=== PATIENT | female | born 1995 | race Caucasian/White ===

== ENCOUNTER 2018-10-31 14:03 | Inpatient (IN) | payer MEDICAID ==
[2018-10-31] MEDS ORDERED: Sodium Chloride 0.9% 10 ML Syringe FLUSH PRN ×2 (17:04→17:11)
[2018-10-31] MEDS ORDERED: Calcium Carbonate 500 MG Tab.Chew PO PRN (17:04)
[2018-10-31] MEDS ORDERED: Misoprostol 50 MCG (1/2 of 100 MCG) Tab VAG ONE (17:10)
[2018-10-31] MEDS ORDERED: Zolpidem 5 MG Tab PO ONE (17:10)
--- NOTE | 2018-10-31 17:34 | PCM.LDHP ---
L&D History of Present Illness - General Date of Service: 10/31/18 Admit Problem/Dx: Patient Status Order with Admit Dx/Problem 10/31/18 17:04 Patient Status [ADT] Routine Admission Diagnosis/Problem Admission Diagnosis/Problem - Related Data Home Medications: Home Meds Cephalexin [Keflex] 500 mg PO TID #14 capsule 06/10/18 [Rx] Past Medical History - Past Health History Medical/Surgical History: Denies Medical/Surgical History - Infectious Disease History Infectious Disease History: Reports: Chicken Pox Social & Family History - Caffeine Use Caffeine Use: Reports: Soda H&P Review of Systems - Review of Systems: Review Of Systems: See Below General: Reports: No Symptoms HEENT: Reports: No Symptoms Pulmonary: Reports: No Symptoms Cardiovascular: Reports: No Symptoms Gastrointestinal: Reports: No Symptoms Genitourinary: Reports: No Symptoms Musculoskeletal: Reports: No Symptoms Skin: Reports: No Symptoms Psychiatric: Reports: No Symptoms Neurological: Reports: No Symptoms Hematologic/Lymphatic: Reports: No Symptoms Immunologic: Reports: No Symptoms L&D Exam - Exam Exam: See Below - OB Specific Contraction Intensity: Mild Movement: Active Heart Tones: Present Heart Rate (FHR) Variability: Moderate (6-25 bmp) Presentation: Vertex - Kramer Score Kramer Score Cervix Position: Posterior Kramer Score Consistency: Firm Kramer Score Effacement: 0-30% Kramer Score Dilation: Closed Kramer Score 's Station: -3 Kramer Score Total: 0 - Exam General: Alert, Oriented HEENT: PERRLA, Conjunctiva Clear, EACs Clear, EOMI, Hearing Intact, Mucosa Moist & [place], Nares Patent, Normal Nasal Septum, Posterior Pharynx Clear, TMs Clear Neck: Supple, Trachea Midline Lungs: Clear to Auscultation, Normal Respiratory Effort Cardiovascular: Regular Rate, Regular Rhythm GI/Abdominal Exam: Normal Bowel Sounds, Soft, Non-Tender, No Organomegaly, No Distention, No Abnormal Bruit, No Mass, Pelvis Stable Rectal Exam: Normal Exam, Normal Rectal Tone Genitourinary: Normal external exam, Normal bimanual exam, Normal speculum exam Back Exam: Normal Inspection, Full Range of Motion Extremities: Normal Inspection, Normal Range of Motion, Non-Tender, Normal Capillary Refill, Pedal Edema (up to knee) Skin: Warm, Dry, Intact Neurological: Cranial Nerves Intact, Reflexes Equal Bilateral, Hyperreflexia DTR: 3+: Patella (L), Patella (R) Psychiatric: Alert, Normal Affect, Normal Mood - Patient Data Lab Results Last 24 hrs: Laboratory Results - last 24 hr 10/31/18 10/31/18 10/31/18 Range/Units 14:24 14:24 15:31 WBC (4.5-11.0) K/uL RBC (3.30-5.50) M/uL Hgb (12.0-15.0) g/dL Hct (36.0-48.0) % MCV (80-98) fL MCH (27-31) pg MCHC (32-36) % Plt Count (150-400) K/uL Neut % (Auto) (36-66) % Lymph % (Auto) (24-44) % [place] % (Auto) (2-6) % Eos % (Auto) (2-4) % Baso % (Auto) (0-1) % Sodium (140-148) mmol/L Potassium (3.6-5.2) mmol/L Chloride (100-108) mmol/L Carbon Dioxide (21-32) mmol/L Anion Gap (5.0-14.0) mmol/L BUN (7-18) mg/dL Creatinine (0.6-1.0) mg/dL Est Cr Clr Drug Dosing Estimated GFR (MDRD) (>60) Glucose (74-106) mg/dL Calcium (8.5-10.1) mg/dL Total Bilirubin (0.2-1.0) mg/dL AST (15-37) U/L ALT (12-78) U/L Alkaline Phosphatase (46-116) U/L Lactate Dehydrogenase (82-234) U/L Total Protein (6.4-8.2) g/dL Albumin (3.4-5.0) g/dL Globulin (2.3-3.5) g/dL Albumin/Globulin Ratio (1.2-2.2) Urine Color Yellow Urine Appearance Slightly cloudy Urine pH 8.0 (4.5-8.0) Ur Specific [place] 1.010 (1.008-1.030) Urine Protein Negative (NEGATIVE) mg/dL Urine Glucose (UA) Normal (NEGATIVE) mg/dL Urine Ketones Negative (NEGATIVE) mg/dL Urine Occult Blood Negative (NEGATIVE) Urine Nitrite Negative (NEGATIVE) Urine Bilirubin Negative (NEGATIVE) Urine Urobilinogen Normal (NORMAL) mg/dL Ur Leukocyte Esterase Small (NEGATIVE) Urine RBC 0-5 (0-5) Urine WBC 5-10 H (0-5) Ur Epithelial Cells Few Amorphous Sediment Not seen Urine Bacteria Many Urine Mucus Not seen Ur Random Creatinine 23.2 (20.0-370.0) mg/dL U Random Total Protein 8.0 (6.0-11.9) mg/dL Protein/Creatinin Ratio 344.8 H (21.0-161.0) mg/g Membrane Rupture Negative (NEGATIVE) 10/31/18 10/31/18 Range/Units 15:48 15:48 WBC 11.4 H (4.5-11.0) K/uL RBC 4.27 (3.30-5.50) M/uL Hgb 10.4 L (12.0-15.0) g/dL Hct 34.1 L (36.0-48.0) % MCV 80 (80-98) fL MCH 24 L (27-31) pg MCHC 31 L (32-36) % Plt Count 219 (150-400) K/uL Neut % (Auto) 73 H (36-66) % Lymph % (Auto) 18 L (24-44) % [place] % (Auto) 8 H (2-6) % Eos % (Auto) 1 L (2-4) % Baso % (Auto) 0 (0-1) % Sodium 140 (140-148) mmol/L Potassium 3.8 (3.6-5.2) mmol/L Chloride 105 (100-108) mmol/L Carbon Dioxide 25 (21-32) mmol/L Anion Gap 9.9 (5.0-14.0) mmol/L BUN 6 L (7-18) mg/dL Creatinine 0.7 (0.6-1.0) mg/dL Est Cr Clr Drug Dosing TNP Estimated GFR (MDRD) > 60 (>60) Glucose 79 (74-106) mg/dL Calcium 9.4 (8.5-10.1) mg/dL Total Bilirubin 0.3 (0.2-1.0) mg/dL AST 16 (15-37) U/L ALT 14 (12-78) U/L Alkaline Phosphatase 194 H (46-116) U/L Lactate Dehydrogenase 213 (82-234) U/L Total Protein 6.5 (6.4-8.2) g/dL Albumin 2.5 L (3.4-5.0) g/dL Globulin 4.0 H (2.3-3.5) g/dL Albumin/Globulin Ratio 0.6 L (1.2-2.2) Urine Color Urine Appearance Urine pH (4.5-8.0) Ur Specific [place] (1.008-1.030) Urine Protein (NEGATIVE) mg/dL Urine Glucose (UA) (NEGATIVE) mg/dL Urine Ketones (NEGATIVE) mg/dL Urine Occult Blood (NEGATIVE) Urine Nitrite (NEGATIVE) Urine Bilirubin (NEGATIVE) Urine Urobilinogen (NORMAL) mg/dL Ur Leukocyte Esterase (NEGATIVE) Urine RBC (0-5) Urine WBC (0-5) Ur Epithelial Cells Amorphous Sediment Urine Bacteria Urine Mucus Ur Random Creatinine (20.0-370.0) mg/dL U Random Total Protein (6.0-11.9) mg/dL Protein/Creatinin Ratio (21.0-161.0) mg/g Membrane Rupture (NEGATIVE) Result Diagrams: 10/31/18 15:48 10/31/18 15:48 - Problem List (1) Encounter for induction of labor SNOMED Code(s): 053296651 ICD Code: Z34.90 - ENCNTR FOR SUPRVSN OF NORMAL , UNSP, UNSP TRIMESTER Status: Acute Current Visit: Yes (2) Severely increased blood pressure and swelling during SNOMED Code(s): 39527233 ICD Code: O14.10 - SEVERE PRE-ECLAMPSIA, UNSPECIFIED TRIMESTER Status: Acute Current Visit: Yes Qualifiers: Trimester: third trimester Qualified Code(s): O14.13 - Severe pre-eclampsia , third trimester (3) Pre-eclampsia in third trimester SNOMED Code(s): 970336324, 142094573 ICD Code: O14.93 - UNSPECIFIED PRE-ECLAMPSIA, THIRD TRIMESTER Status: Acute Current Visit: Yes (4) SNOMED Code(s): 94212477 ICD Code: Z34.90 - ENCNTR FOR SUPRVSN OF NORMAL , UNSP, UNSP TRIMESTER Status: Acute Current Visit: Yes Qualifiers: Weeks of gestation: 39 weeks Qualified Code(s): Z3A.39 - 39 weeks gestation of Problem List Initiated/Reviewed/Updated: Yes Orders Last 24hrs: Active Orders 24 hr Category Date Time Status Patient Status [ADT] Routine ADT 10/31/18 17:04 Active Bedrest Bathroom Privileges [RC] ASDIRECTED Care 10/31/18 16:59 Active Communication Order [RC] ASDIRECTED Care 10/31/18 16:59 Active Communication Order [RC] ASDIRECTED Care 10/31/18 17:04 Active Equipment to Bedside [RC] PRN Care 10/31/18 16:59 Active Heart Tones [RC] PER UNIT ROUTINE Care 10/31/18 17:04 Active Non Stress Test [RC] Click to Edit Care 10/31/18 17:04 Active Intake and Output [RC] Q8H Care 10/31/18 17:02 Active May Shower [RC] ASDIRECTED Care 10/31/18 17:04 Active Notify Provider Vital Signs [RC] ASDIRECTED Care 10/31/18 16:59 Active Notify Provider [RC] PRN Care 10/31/18 17:04 Active OB Check [OM.PC] Click to Edit Care 10/31/18 14:24 Ordered Oxygen Therapy [RC] PRN Care 10/31/18 16:59 Active VTE/DVT Education [RC] Click to Edit Care 10/31/18 17:07 Active Vital Signs [RC] ASDIRECTED Care 10/31/18 16:59 Active Vital Signs [RC] PER UNIT ROUTINE Care 10/31/18 17:04 Active Weight Daily [Height and Weight] [RC] DAILY Care 10/31/18 17:23 Active Regular Diet [DIET] Diet 10/31/18 Dinner Active CBC WITH AUTO DIFF [HEME] Stat Lab 11/01/18 06:00 Ordered COMPREHENSIVE METABOLIC PN,CMP [CHEM] Stat Lab 11/01/18 06:00 Ordered LACTATE DEHYDROGENASE,LDH [CHEM] Stat Lab 11/01/18 06:00 Ordered MAGNESIUM [CHEM] Stat Lab 11/01/18 06:00 Ordered PROTEIN/CREATININE RATIO,URINE [URCHEM] Stat Lab 11/01/18 06:00 Ordered URIC ACID [CHEM] Stat Lab 11/01/18 06:00 Ordered Calcium Carbonate [Tums] Med 10/31/18 17:04 Ordered 1,000 mg PO Q2HR PRN Labetalol [Normodyne] Med 10/31/18 17:00 Pending 100 mg PO Q12H Ondansetron [Zofran] Med 10/31/18 17:04 Ordered 4 mg IV Q4H PRN Sodium Chloride 0.9% [Saline Flush] Med 10/31/18 17:04 Ordered 10 ml FLUSH ASDIRECTED PRN Sodium Chloride 0.9% [Saline Flush] Med 10/31/18 17:11 Ordered 10 ml FLUSH ASDIRECTED PRN Zolpidem [Ambien] Med 10/31/18 17:10 Once 10 mg PO ONETIME ONE miSOPROStol [Cytotec] Med 10/31/18 17:10 Once 50 mcg VAG ONETIME ONE Blood Pressure [OM.PC] Per Unit Routine Oth 10/31/18 16:59 Ordered DVT/VTE Prophylaxis Reflex [OM.PC] Routine Oth 10/31/18 17:04 Ordered Deep Tendon Reflexes [WOMSER] Per Unit Routine Oth 10/31/18 16:59 Ordered Saline Lock Insert [OM.PC] Routine Oth 10/31/18 17:04 Ordered Saline Lock Insert [OM.PC] Routine Ot 10/31/18 17:11 Ordered Seizure Precautions [OM.PC] Per Unit Routine Oth 10/31/18 17:02 Ordered Sequential Compression Device [OM.PC] Routine Oth 10/31/18 17:04 Ordered Resuscitation Status Routine Resus Stat 10/31/18 17:04 Ordered Medication Orders Calcium Carbonate/Glycine (Tums) 1,000 mg PO Q2HR PRN PRN Reason: Indigestion Labetalol HCl (Normodyne) 100 mg PO Q12H MARY Misoprostol (Cytotec) 50 mcg VAG ONETIME ONE Stop: 10/31/18 17:11 Ondansetron HCl (Zofran) 4 mg IV Q4H PRN PRN Reason: Nausea/Vomiting Sodium Chloride (Saline Flush) 10 ml FLUSH ASDIRECTED PRN PRN Reason: Keep Vein Open Sodium Chloride (Saline Flush) 10 ml FLUSH ASDIRECTED PRN PRN Reason: Keep Vein Open Zolpidem Tartrate (Ambien) 10 mg PO ONETIME ONE Stop: 10/31/18 17:11 Assessment/Plan Comment:: 10/31/2018 23 yo here at 39 3/7 weeks gestation, originally came because she thought she had ruptured membranes. She was found to have high BP first being 153/105 and 20 minutes later she had a 153/101, full preeclampsia work up was done on patient. Protein/Creatine ratio-344.8 LDH-213 Edema-+3 pitting edema and labia edema hyperreflexia No clonus noted FHTs-category one Irregular contractions SVE-closed/thick/ballotable and high Will need to medically induce patient due to preeclampsia, term , and unstable BPs with worsening symptoms Patient agrees with this plan Plan- Continue to monitor FHTS Continue to monitor for labor Will place Cytotec 50mcg vaginally Will start labetolol 100mg every 12hrs Insert saline lock Every time you check vital signs per cytotec policy, check FHTS, Contraction pattern, reflexes, Clonus, and lung sounds If patient starts to have other complaints such as headache, spots in vision, notify provider and assess more frequently Seizure precautions Limit visitors and activity Modified bedrest Patient can shower, light walks, sit on ball, and small activity Light dietary intake CBC, CMP, LDH, Magnesium level, and protein creatine ratio at 0600 in am Pain management per patient request Ambien at 2100 then no visitors but significant other throughout night Plan and anticipate vaginal delivery
[2018-10-31] MEDS: Labetalol 100 MG Tab PO SCH (18:33)
[2018-10-31] MEDS ORDERED: Zolpidem 5 MG Tab ONE (21:30)
[2018-11-01] MEDS: Labetalol 100 MG Tab PO SCH ×2 (06:00→17:39)
[2018-11-01] MEDS ORDERED: Misoprostol 50 MCG (1/2 of 100 MCG) Tab VAG ONE (06:30)
[2018-11-01] MEDS ORDERED: Misoprostol 50 MCG (1/2 of 100 MCG) Tab ONE (06:46)
[2018-11-01] MEDS ORDERED: Potassium Chloride 20 MEQ Tab.ER PO ONE (07:02)
--- NOTE | 2018-11-01 07:37 | PCM.PNLD ---
Labor Progress Note - VS & Meds Vital Signs: Last Vital Signs Temp 36.1 C 11/01/18 02:41 Pulse 105 H 11/01/18 06:00 Resp 16 11/01/18 02:41 BP 127/79 11/01/18 06:00 Pulse Ox 97 11/01/18 02:41 Active Medications: Current Medications Calcium Carbonate/Glycine (Tums) 1,000 mg PO Q2H PRN PRN Reason: Indigestion Labetalol HCl (Normodyne) 100 mg PO Q12H [facility] Last Admin: 11/01/18 06:00 Dose: 100 mg Ondansetron HCl (Zofran) 4 mg IV Q4H PRN PRN Reason: Nausea/Vomiting Sodium Chloride (Saline Flush) 10 ml FLUSH ASDIRECTED PRN PRN Reason: Keep Vein Open Sodium Chloride (Saline Flush) 10 ml FLUSH ASDIRECTED PRN PRN Reason: Keep Vein Open Discontinued Medications Misoprostol (Cytotec) 50 mcg VAG ONETIME ONE Stop: 10/31/18 17:11 Last Admin: 10/31/18 18:34 Dose: 50 mcg Misoprostol (Cytotec) 50 mcg VAG ONETIME ONE Stop: 11/01/18 06:31 Last Admin: 11/01/18 06:42 Dose: 50 mcg Misoprostol (Cytotec) Confirm Administered Dose 50 mcg .ROUTE .STK-MED ONE Stop: 11/01/18 06:47 Last Admin: 11/01/18 06:52 Dose: Not Given Potassium Chloride (Klor-Con M20) 20 meq PO ONETIME ONE Stop: 11/01/18 07:03 Zolpidem Tartrate (Ambien) 10 mg PO ONETIME ONE Stop: 10/31/18 17:11 Last Admin: 10/31/18 21:32 Dose: 10 mg Zolpidem Tartrate (Ambien) Confirm Administered Dose 10 mg .ROUTE .STK-MED ONE Stop: 10/31/18 21:31 Last Admin: 11/01/18 05:50 Dose: Not Given - Uterine Contractions Uterine Monitoring Mode: External [place] Contraction Frequency (min): 130 Contraction Duration (sec): 40-70 Contraction Intensity: Mild to Moderate Uterine Resting Tone: Soft - Monitoring Heart Rate (FHR) Variability: Moderate (6-25 bmp) Accelerations: Present, 15x15 Decelerations: None Strip Review: Category I - Vaginal Exam Dilation (cm): 0 Effacement (Percent): 0 Station: Ballotable Cervical Position: Posterior Sterile Vaginal Exam Performed By: Julissa Ambriz - Labor Progress (Free Text) Labor Progress: 11/01/2018 23 yo here at 39 4/7 for a medical induction due to preeclampsia, elevated BP, elevated proteinuria, pitting edema, and hyperreflexia Had cytotec last night-no cervical change Had labatolol and BP is more stable Labs this am-Hgb-9.8, K+3.5, LDH 215, Total urine protein up to 23, but ratio 233 Edema still 3+ and pitting, hyperreflexia noted No clonus Plan- Placed another cytotec vaginally Gave one dose oral K+ 20meq Will do a BPP this am on fetus, and a OB limited for position, BENEDICTO since baby is no where in pelvis and ballotable Continue to monitor for labor Continue to monitor FHTs Will reassess at lunchtime and possible start Pitocin Plan and anticipate a vaginal delivery
--- NOTE | 2018-11-01 08:40 | CRLUS ---
INDICATION: . Biophysical profile. position in amniotic fluid. FINDINGS: A limited OB ultrasound and biophysical profile was performed. There is a single living intrauterine gestation. Cardiac activity at a rate of 130 beats per minute. Anterior placenta. Presentation vertex. Amniotic fluid index 10.0 cm. measuring BPD 9.44 cm. 38 weeks 4 days Head circumference 33.76 cm. 38 weeks 6 days. Abdominal circumference 34.58 cm. 38 weeks 4 days. Femur length 7.53 cm. 38 weeks 4 days. The sonographic estimated station late age is 38 weeks 5 days. Estimated weight 3517 g which that the 73rd percentile. Biophysical profile. Breathin. Movement: 2 Tone: 2 Fluid volume: 2 Biophysical profile 12/17. IMPRESSION: Single living intrauterine gestation at a sonographic estimated gestational age of 38 weeks 5 days. Biophysical profile 12/17. Dictated by: León Coburn MD @ 11/01/2018 08:38:50 (Electronically Signed)
--- NOTE | 2018-11-01 08:40 | CRLUS ---
INDICATION: . Biophysical profile. position in amniotic fluid. FINDINGS: A limited OB ultrasound and biophysical profile was performed. There is a single living intrauterine gestation. Cardiac activity at a rate of 130 beats per minute. Anterior placenta. Presentation vertex. Amniotic fluid index 10.0 cm. measuring BPD 9.44 cm. 38 weeks 4 days Head circumference 33.76 cm. 38 weeks 6 days. Abdominal circumference 34.58 cm. 38 weeks 4 days. Femur length 7.53 cm. 38 weeks 4 days. The sonographic estimated station late age is 38 weeks 5 days. Estimated weight 3517 g which that the 73rd percentile. Biophysical profile. Breathin. Movement: 2 Tone: 2 Fluid volume: 2 Biophysical profile 12/17. IMPRESSION: Single living intrauterine gestation at a sonographic estimated gestational age of 38 weeks 5 days. Biophysical profile 12/17. Dictated by León Coburn MD @ Nov 01 2018 8:28AM Signed by Dr. León Coburn @ Nov 01 2018 8:38AM
[2018-11-01] MEDS ORDERED: Acetaminophen 325 MG Tab PO PRN (14:07)
[2018-11-01] MEDS ORDERED: Lactated Ringers 1,000 ML IV ONE (18:00)
--- NOTE | 2018-11-01 18:17 | PCM.PNLD ---
Labor Progress Note - VS & Meds Vital Signs: Last Vital Signs Temp 35.9 C 11/01/18 14:26 Pulse 96 11/01/18 17:39 Resp 16 11/01/18 14:35 BP 133/73 11/01/18 17:39 Pulse Ox 97 11/01/18 14:35 Active Medications: Current Medications Acetaminophen (Tylenol) 650 mg PO Q4H PRN PRN Reason: Headache/Pain Last Admin: 11/01/18 14:25 Dose: 650 mg Calcium Carbonate/Glycine (Tums) 1,000 mg PO Q2H PRN PRN Reason: Indigestion Oxytocin/Sodium Chloride (Pitocin In Ns 20 Units/1,000 Ml) 20 unit in 1,000 mls @ 6 mls/hr IV TITRATE MARY; Protocol Last Titration: 11/01/18 17:56 Dose: 0 munits/min, 0 mls/hr Lactated Ringer's (Ringers, Lactated) 1,000 mls @ 999 mls/hr IV BOLUS ONE Stop: 11/01/18 19:00 Last Admin: 11/01/18 17:50 Dose: 999 mls/hr Labetalol HCl (Normodyne) 100 mg PO Q12H MARY Last Admin: 11/01/18 17:39 Dose: 100 mg Ondansetron HCl (Zofran) 4 mg IV Q4H PRN PRN Reason: Nausea/Vomiting Sodium Chloride (Saline Flush) 10 ml FLUSH ASDIRECTED PRN PRN Reason: Keep Vein Open Sodium Chloride (Saline Flush) 10 ml FLUSH ASDIRECTED PRN PRN Reason: Keep Vein Open Discontinued Medications Misoprostol (Cytotec) 50 mcg VAG ONETIME ONE Stop: 10/31/18 17:11 Last Admin: 10/31/18 18:34 Dose: 50 mcg Misoprostol (Cytotec) 50 mcg VAG ONETIME ONE Stop: 11/01/18 06:31 Last Admin: 11/01/18 06:42 Dose: 50 mcg Misoprostol (Cytotec) Confirm Administered Dose 50 mcg .ROUTE .STK-MED ONE Stop: 11/01/18 06:47 Last Admin: 11/01/18 06:52 Dose: Not Given Potassium Chloride (Klor-Con M20) 20 meq PO ONETIME ONE Stop: 11/01/18 07:03 Last Admin: 11/01/18 08:27 Dose: 20 meq Zolpidem Tartrate (Ambien) 10 mg PO ONETIME ONE Stop: 10/31/18 17:11 Last Admin: 10/31/18 21:32 Dose: 10 mg Zolpidem Tartrate (Ambien) Confirm Administered Dose 10 mg .ROUTE .STK-MED ONE Stop: 10/31/18 21:31 Last Admin: 11/01/18 05:50 Dose: Not Given - Uterine Contractions Uterine Monitoring Mode: None in Use Contraction Frequency (min): 1.5-3 Contraction Duration (sec): 50-80 Contraction Intensity: Mild Uterine Resting Tone: Soft - Monitoring Heart Rate (FHR) Variability: Moderate (6-25 bmp) Accelerations: Present, 15x15 Decelerations: None Strip Review: Category I - Vaginal Exam Dilation (cm): 0 Effacement (Percent): 0 Station: Ballotable Cervical Position: Posterior Sterile Vaginal Exam Performed By: Julissa Ambriz - Labor Progress (Free Text) Labor Progress: 11/01/2018 Patient remains same SVE FHTs remain category one Contractions are more regular at 1.5-3.5 minutes Patient states she can feel them now BP currently more stable on labetalol Plan- Continue to monitor labor Continue to monitor FHTs Continue limited activity and modified bedrest Continue labetalol for BP Continue close I&O Continue seizure precautions Start Pitocin per protocol Plan and anticipate a vaginal delivery Will reassess later today
[2018-11-01] MEDS ORDERED: Oxytocin 10 Units/1 ML SDV ONE ×2 (18:24→18:25)
[2018-11-01] MEDS ORDERED: cefOXitin 1 GM Vial ONE (18:24)
[2018-11-01] MEDS ORDERED: cefOXitin 2 GM Vial ONE (18:25)
[2018-11-01] MEDS ORDERED: ePHEDrine 50 MG/ML SDV ONE (18:25)
--- NOTE | 2018-11-01 18:27 | PCM.PNLD ---
Labor Progress Note - VS & Meds Vital Signs: Last Vital Signs Temp 35.9 C 11/01/18 14:26 Pulse 96 11/01/18 17:39 Resp 16 11/01/18 14:35 BP 133/73 11/01/18 17:39 Pulse Ox 97 11/01/18 14:35 Active Medications: Current Medications Acetaminophen (Tylenol) 650 mg PO Q4H PRN PRN Reason: Headache/Pain Last Admin: 11/01/18 14:25 Dose: 650 mg Calcium Carbonate/Glycine (Tums) 1,000 mg PO Q2H PRN PRN Reason: Indigestion Oxytocin/Sodium Chloride (Pitocin In Ns 20 Units/1,000 Ml) 20 unit in 1,000 mls @ 6 mls/hr IV TITRATE MARY; Protocol Last Titration: 11/01/18 17:56 Dose: 0 munits/min, 0 mls/hr Lactated Ringer's (Ringers, Lactated) 1,000 mls @ 999 mls/hr IV BOLUS ONE Stop: 11/01/18 19:00 Last Admin: 11/01/18 17:50 Dose: 999 mls/hr Labetalol HCl (Normodyne) 100 mg PO Q12H MARY Last Admin: 11/01/18 17:39 Dose: 100 mg Ondansetron HCl (Zofran) 4 mg IV Q4H PRN PRN Reason: Nausea/Vomiting Sodium Chloride (Saline Flush) 10 ml FLUSH ASDIRECTED PRN PRN Reason: Keep Vein Open Sodium Chloride (Saline Flush) 10 ml FLUSH ASDIRECTED PRN PRN Reason: Keep Vein Open Discontinued Medications Misoprostol (Cytotec) 50 mcg VAG ONETIME ONE Stop: 10/31/18 17:11 Last Admin: 10/31/18 18:34 Dose: 50 mcg Misoprostol (Cytotec) 50 mcg VAG ONETIME ONE Stop: 11/01/18 06:31 Last Admin: 11/01/18 06:42 Dose: 50 mcg Misoprostol (Cytotec) Confirm Administered Dose 50 mcg .ROUTE .STK-MED ONE Stop: 11/01/18 06:47 Last Admin: 11/01/18 06:52 Dose: Not Given Potassium Chloride (Klor-Con M20) 20 meq PO ONETIME ONE Stop: 11/01/18 07:03 Last Admin: 11/01/18 08:27 Dose: 20 meq Zolpidem Tartrate (Ambien) 10 mg PO ONETIME ONE Stop: 10/31/18 17:11 Last Admin: 10/31/18 21:32 Dose: 10 mg Zolpidem Tartrate (Ambien) Confirm Administered Dose 10 mg .ROUTE .STK-MED ONE Stop: 10/31/18 21:31 Last Admin: 11/01/18 05:50 Dose: Not Given - Uterine Contractions Uterine Monitoring Mode: None in Use Contraction Frequency (min): 1.5-3 Contraction Duration (sec): 50-80 Contraction Intensity: Mild Uterine Resting Tone: Soft - Monitoring Heart Rate (FHR) Variability: Moderate (6-25 bmp) Accelerations: Present, 15x15 Decelerations: None Strip Review: Category I - Vaginal Exam Dilation (cm): FT Effacement (Percent): 25 Station: Ballotable Cervical Position: Posterior Sterile Vaginal Exam Performed By: Julissa Ambriz Vaginal Exam Comment: pitocin running currently - Labor Progress (Free Text) Labor Progress: 11/01/2018 Patient still not progressing Did have a few higher BPs during afternoon Still has 2+ edema Still has hyperreflexia FHTs category one Contractions regular 1.5-3minutes SVE-FT/25/ballotable Pitocin has been running for over five hours Patient is requesting a at this time Plan- Stop pitocin at this time OR crew notified of decision at this time LR bolus initiated
[2018-11-01] MEDS ORDERED: Dexamethasone 4 MG/ML SDV ONE (19:14)
[2018-11-01] MEDS ORDERED: Ondansetron 4 MG/2 ML SDV ONE (19:14)
[2018-11-01] MEDS ORDERED: Metoclopramide 10 MG/2 ML SDV IVPUSH PRN (20:44)
[2018-11-01] MEDS ORDERED: Naloxone 0.4 MG/ML SDV IVPUSH PRN ×2 (20:45→21:03)
[2018-11-01] MEDS ORDERED: Atropine 0.1 MG/ML 10 ML Syringe IVPUSH PRN (20:46)
[2018-11-01] MEDS ORDERED: Meperidine PF 25 MG/ML Syringe IVPUSH PRN (20:48)
[2018-11-01] MEDS ORDERED: Labetalol 20 MG/4 ML Syringe IVPUSH PRN (20:51)
[2018-11-01] MEDS ORDERED: hydrOXYzine HCl 100 MG/2 ML SDV IM PRN (21:02)
[2018-11-01] MEDS ORDERED: HYDROmorphone/Normal Saline 15 MG/30 ML PCA IV PRN (21:03)
[2018-11-01] MEDS: Ondansetron 4 MG/2 ML SDV IV PRN (21:45)
[2018-11-01] MEDS: cefOXitin 2 GM in Sodium Chloride 0.9% 50 ML IV SCH (22:28)
[2018-11-01] MEDS: Acetaminophen 1,000 MG in Premix Bag 1 BAG IV SCH (23:05)
[2018-11-02] MEDS ORDERED: Dextrose 5%-Lactated Ringers 1,000 ML IV SCH (02:00)
[2018-11-02] MEDS: Acetaminophen 1,000 MG in Premix Bag 1 BAG IV SCH (03:58)
[2018-11-02] MEDS: cefOXitin 2 GM in Sodium Chloride 0.9% 50 ML IV SCH ×3 (04:22→16:01)
[2018-11-02] MEDS ORDERED: Acetaminophen 325 MG Tab, 50 Tab Bulk Bottle PO PRN (07:20)
[2018-11-02] MEDS: Dextrose 5%-Lactated Ringers 1,000 ML IV SCH (08:01)
[2018-11-02] MEDS: Docusate Sodium 100 MG Cap PO SCH ×2 (09:15→21:41)
[2018-11-02] MEDS ORDERED: Acetaminophen 1,000 MG in Premix Bag 1 BAG IV SCH (10:00)
--- NOTE | 2018-11-02 10:08 | OR ---
DATE OF PROCEDURE: 11/01/2018 PREOPERATIVE DIAGNOSIS: Term with preeclampsia and failure to progress. POSTOPERATIVE DIAGNOSES: 1. Term with preeclampsia and failure to progress. 2. Peritoneal cystic lesion, left lateral uterine wall. OPERATIVE PROCEDURES: 1. section (88802). 2. Excision of cystic peritoneal lesion left lateral uterine wall (05335). ANESTHESIA: Spinal. MEDICAL OFFICE SPECIALIST: Julissa Ambriz CNM. INDICATION FOR PROCEDURE: This is a 23-year-old, presenting with term with preeclampsia. Induction was initiated earlier which has resulted in failure to progress and the decision was made at this time to proceed with a section. Potential risks including bleeding, infection, injury to underlying viscera, injury to the baby and mother were all reviewed, and the patient wishes to proceed. DETAILS OF PROCEDURE: The patient was taken to the operating room after spinal anesthetic was induced, a White catheter inserted. The patient was positioned with a roll underneath the right hip and the abdomen prepped and draped. A standard Pfannenstiel incision was made, carried down through the skin, subcutaneous tissue, and through the external oblique aponeurosis. Subaponeurotic flaps were then raised superiorly and inferiorly, and the midline peritoneum divided. The peritoneal reflection of the bladder on the uterus was then divided and then transverse lower uterine incision was made and a viable female was delivered through vertex presentation. The cord was clamped and cut, and routine care was given off the field. The scores at 1 and 5 minutes were 9 and 10 respectively. The patient was given IV intrauterine oxytocin and IV cefoxitin. Placenta and membranes were delivered without difficulty. The uterus was then closed with two layers of 2-0 Vicryl stitch as was the peritoneal reflection of the bladder on the uterus. At this point, it was noted that the patient had a roughly 1 cm cystic lesion on the lateral peritoneal surface of the uterus on the left side. This was excised and sent for histologic evaluation. At that point, no further problems were noted. The uterus was returned back to the peritoneal cavity and the midline peritoneum approximated with #2 Vicryl stitch as was the anterior rectus sheath. Subcutaneous tissue was approximated with 2-0 Vicryl stitch and the skin closed with 4-0 Vicryl subcuticular stitch. Dressing applied. The patient was taken to the recovery room in satisfactory condition. Russ Zhang MD /[id number]
--- NOTE | 2018-11-02 10:29 | PN ---
DATE OF SERVICE: 11/02/2018 SUBJECTIVE: Lila is postoperative day #1. Following a , she states her pain is controlled. She has no questions or concerns. Vital signs have been stable. Hemoglobin was 8.5. REVIEW OF SYSTEMS: Remainder of review of systems negative for any pertinent positives and negatives. OBJECTIVE: GENERAL: Lila Bahena is a pleasant 23-year-old female. She is alert and orientated. VITAL SIGNS: TPR is 97.2, 88, 18, and blood pressure 129/73. HEENT: Negative. NECK: Supple. HEART: Regular rate and rhythm. LUNGS: Clear. ABDOMEN: Uterus is firm according to OB nurses. Dressing dry and intact. White catheter in place. EXTREMITIES: Without peripheral edema. ASSESSMENT: section on 11/01/2018. PLAN: 1. Discontinue White catheter. 2. Dressing off, may shower, leaving Aquacel on. 3. Full liquid diet, advanced this a.m. Regular diet at noon if tolerated. CBC without diff in a.m. at 0400 hours, Tylenol 650 mg q.6 hours p.r.n. pain. Continue [employer], Colace 100 mg p.o. b.i.d., D5 LR to 100 mL per hour. 4. Good pulmonary toilet. 5. We will evaluate p.r.n. or in a.m. Deana Godinez PA-C /[id number]
[2018-11-02] MEDS: Labetalol 100 MG Tab PO SCH ×2 (11:15→21:41)
[2018-11-02] MEDS: Ondansetron 4 MG/2 ML SDV IV PRN (11:15)
[2018-11-02] MEDS ORDERED: Lactated Ringers 1,000 ML IV SCH (14:45)
[2018-11-02] MEDS ORDERED: Acetaminophen/HYDROcodone 325-5 MG Tab PO PRN (19:37)
[2018-11-02] MEDS: Ibuprofen 400 MG Tab PO PRN (20:22)
[2018-11-02] MEDS ORDERED: Lanolin 100% Cream 40 GM Tube TOP PRN (21:40)
[2018-11-03] MEDS: Dextrose 5%-Lactated Ringers 1,000 ML IV SCH ×2 (00:13→09:30)
[2018-11-03] MEDS: Ibuprofen 400 MG Tab PO PRN ×2 (04:12→17:20)
[2018-11-03] MEDS: Docusate Sodium 100 MG Cap PO SCH ×2 (08:26→21:40)
[2018-11-03] MEDS: Labetalol 100 MG Tab PO SCH ×2 (09:25→21:40)
--- NOTE | 2018-11-03 10:05 | PN ---
DATE OF SERVICE: 11/01/2018 SUBJECTIVE: Lila is postoperative day 2. She has been up ambulating. Pain is controlled with oral pain medication along with scheduled ibuprofen and Tylenol. She has no concerns or questions. This morning hemoglobin was 7.2. Russ Zhang MD stating fluid shifting attributes to the decrease in her hemoglobin. OBJECTIVE: GENERAL: Lila Bahena is a 23-year-old female. VITAL SIGNS: TPR is 96.4, 95, 18, blood pressure 117/69. HEENT: Negative. NECK: Supple. HEART: Regular rate and rhythm. LUNGS: Clear. ABDOMEN: Dressings dry and intact. EXTREMITIES: Without peripheral edema. ASSESSMENT: section and excision of cystic peritoneal lesion, left lateral uterine wall for term with preeclampsia and failure to progress and peritoneal cystic lesion, left lateral uterine wall. Date of surgery 11/01/2018. PLAN: 1. Check CBC in a.m. 2. Type and screen in a.m. for 2 units of packed red blood cells. If hemoglobin is 6.5 or the patient is symptomatic, to transfuse RBCs. Good pulmonary toilet. We will evaluate p.r.n. or in a.m. Deana Godinez PA-C /[id number]
[2018-11-03] MEDS ORDERED: Labetalol 100 MG Tab PO ONE (13:07)
--- NOTE | 2018-11-04 08:15 | DISCH ---
ADMISSION DIAGNOSES: 1. Term . 2. Anemia. 3. Preeclampsia in 3rd trimester. 4. Failure to progress. DISCHARGE DIAGNOSES: 1. section. 2. Excision of cystic peritoneal lesion, left lateral uterine wall. POSTOPERATIVE DIAGNOSES: 1. Term with preeclampsia and failure to progress. 2. Peritoneal cystic lesion, left lateral uterine wall. HISTORY: Lila Bahnea is a pleasant 23-year-old female, presenting with term with preeclampsia. Induction was initiated earlier which resulted in failure to progress and the decision was made at this time to proceed with section. After preoperative evaluation and discussion of possible risks and possible complications, the patient wished to proceed with surgical procedure. HOSPITAL COURSE: Lila had her on 11/01/2018. She had no operative complications. On operative day, her hemoglobin was 9.8. On postoperative day #1, it was 8.5, and on postoperative day #2 and #3, it remained at 7.2. Postoperative day #1, her pain was well managed. Her White was discontinued. She was voiding. Pain was controlled and she was up ambulating and tolerated a regular diet. On postoperative day #2, her activity remained good. She did have a pulse rate of greater than 100 to 110, afebrile. Blood pressure ranged between 111 to 145 and diastolic 73 to 96. Lila's activity was good. Pain was well managed. Incision looked good, vital signs stable, and she was able to be discharged to home on 11/04/2018 with no complications. Last bowel movement was 11/03/2018. PHYSICAL EXAMINATION: GENERAL: Lila Bahena is a 23-year-old female. VITAL SIGNS: Height is 4 feet 11 inches, weight is 197 pounds, BMI is 39.8. TPR is 97.1, 98, 18, blood pressure 129/77. HEENT: Negative. NECK: Supple. HEART: Regular rate and rhythm. LUNGS: Clear. ABDOMEN: Negative. Aquacel dressing will be removed. Steri-Strips replaced if needed prior to discharge. To wear abdominal binder, currently is not on. EXTREMITIES: With trace peripheral edema. DISPOSITION: Discharged to home. CONDITION: Stable and improving. FOLLOWUP APPOINTMENT: Deana Godinez PA-C, on 11/11/2018 at 1 p.m. A CBC to be done at 12:30 before appointment. She is to follow up with Julissa Ambriz CNM, per their recommendations in approximately 6 weeks. HOME MEDICATIONS: 1. Tylenol 650 mg every 6 hours p.r.n. pain, #100. 2. [place] 5/325 mg one tablet every 6 hours p.r.n. pain, #28. 3. Colace 100 mg b.i.d., #100. 4. Motrin 400 mg every 6 hours p.r.n. pain, #100. 5. Vitron C one twice daily for 1 month. 6. Lanolin 40 g topical, use as directed, tube to be sent home with the patient. 7. Continue vitamins. DIET: Usual diet as tolerated. Drink 8 to 10 glasses of water a day. ACTIVITY: As tolerated. No lifting greater than 10 pounds and baby in car seat for 6 weeks. Driving: Do not drive for 1 week and while on pain medication. Shower/bathing: May shower. No tub bathing or swimming for 6 weeks or until incision is healed. Wound incision care, keep site clean and dry. Wear abdominal binder for 2 to 6 weeks as tolerated. Use incentive spirometer 10 times every hour while awake.
[2018-11-04] MEDS: Labetalol 100 MG Tab PO SCH (09:37)
[2018-11-04] MEDS: Docusate Sodium 100 MG Cap PO SCH (09:37)
== END 2018-11-04 11:19 | disposition home or self-care (01) | DRG 788 ==
LOC: JP.OBCHECK 14:03 → JP.OB 16:56 → OBSVTOIN 11-01 19:33 → JP.MS 11-01 22:44
PROVIDERS: ADMIT Surgery; ATTEND Surgery
PROC: 10D00Z1 Extraction of Products of Conception, Low, Open Approach (ICD-10-PCS; principal; 2018-11-01)
PROC: 0UB90ZX Excision of Uterus, Open Approach, Diagnostic (ICD-10-PCS; 2018-11-01)
PROC: 3E0P7VZ Introduction of Hormone into Female Reproductive, Via Natural or Artificial Opening (ICD-10-PCS; 2018-11-01)
PROC: 0U7C7ZZ Dilation of Cervix, Via Natural or Artificial Opening (ICD-10-PCS; 2018-11-01)
DX: O14.14 Severe pre-eclampsia complicating childbirth (principal); O61.0 Failed medical induction of labor; O62.0 Primary inadequate contractions; O12.04 Gestational edema, complicating childbirth; Z3A.39 39 weeks gestation of pregnancy; Z37.0 Single live birth; O75.89 Other specified complications of labor and delivery; N85.9 Noninflammatory disorder of uterus, unspecified; O99.02 Anemia complicating childbirth
CPT/HCPCS: 36415; 59409; 76815; 76818; 80053; 81001; 82570; 83615; 83735; 84112; 84156; 84550; 85025; 85027; 86850; 86900; 86901; 86920; 86922; 88305; 88307; 94762; 99211; A9270-GY; J0131; J0694; J1100; J1170; J2405; J2590; J7042; J7050; J7120